=== PATIENT | female | born 1970 | race Caucasian/White ===

== ENCOUNTER 2018-01-16 17:37 | Emergency (ER) | payer OTHER, SELFPAY ==
[2018-01-16 17:38] VITALS: BP 142/98; PULSE 76; RESP 15; TEMP 36.7; O2SAT 99; BMI 18.4
--- NOTE | 2018-01-16 18:07 | CT_ITS ---
STUDY: CT ABDOMEN AND PELVIS WITH CONTRAST REASON FOR EXAM: Female, 47 years old. Left lower quadrant pain and nausea. Previous diverticulitis. RADIATION DOSAGE (If Supplied By Facility): CTDIvol = ( 10.33 ) mGy, DLP = ( 540.09 ) mGycm TECHNIQUE: Transaxial images were obtained from the dome of the diaphragm to the symphysis pubis with oral contrast. 100ML ml of Isovue 300 contrast was administered. Sagittal and coronal images were reconstructed. Individualized dose optimization techniques were used for this CT. COMPARISON: 05/20/2009. FINDINGS: The visualized lung bases are unremarkable. The visualized portions of the heart are within normal limits. Normal liver. Normal gallbladder and extrahepatic biliary system. Normal spleen. Normal pancreas. Normal bilateral adrenal glands. Normal right kidney. Normal left kidney. Normal visualized stomach. Normal small intestine. The appendix is visualized and appears normal. There is a 5 cm segment of colon in the distal descending colon and junction with sigmoid colon which is markedly thickened, irregular, has diverticuli, and pericolonic stranding. Findings are most consistent with acute diverticulitis, but a more serious condition such as neoplasm with inflammatory changes is not excluded. Suggest follow-up and/or colonoscopy. No evidence for perforation or abscess. Normal abdominal aorta. Normal inferior vena cava. Normal retroperitoneum. Normal urinary bladder. There is absence of the uterus consistent with a prior hysterectomy. Normal abdominal wall. Normal osseous structures. CT/Abdomen/Pelvis WITH Contrast IMPRESSION: 5 cm segment of probable acute diverticulitis at the junction of descending colon and sigmoid colon. Circumferential neoplasm not excluded. See comments above. Electronically Signed: Jonny Oviedo MD at 20:09 EST , Service support ,
--- NOTE | 2018-01-16 18:09 | ED.VISSUMM ---
- ER Visit Summary Date of Service: 01/16/18 Chief Complaint: Abdominal pain History of Present Illness: The patient is a 47 F with nausea for 5 days last week. Patient states she was not able to eat much but was drinking a lot. 2 days ago she had diarrhea. She developed left lower quadrant abdominal pain today. She denies fever. She does have some dysuria. History significant for celiac disease and diverticulosis. Prior surgical history includes partial hysterotomy, x2, ex lap x2. Physical Examination: Vital signs are unremarkable. Patient sitting upright in bed no acute distress. Head neck examination is normal. Heart is regular rate and rhythm. Lung sounds are clear. Abdomen is soft with moderate tenderness in the left lower quadrant. No guarding or rebound. Hypoactive bowel sounds are noted throughout. Test Results: CBC was a white count of 13 and hemoglobin concentrated at 15.2. Chemistry studies normal. Urinalysis normal. CT abdomen pelvis with contrast reveals a 5 cm segment of probable acute diverticulitis at the junction of the descending and sigmoid colon. No abscess. Emergency Department Course and Treatment: Patient was given morphine, Zofran, and IV fluids on arrival. On repeat evaluation she states her pain is recurring. She will be redosed with morphine and Phenergan and started on p.o. Cipro and Flagyl. Patient be given prescriptions and will follow up with her primary care physician. She was given return instructions. Treatment Plan: [] Disposition: Discharge Impression: Diverticulitis This note was generated with [employer] dictation software. It may contain incorrect words, spelling, and punctuation that were not noted in review of the chart prior to signing ED Disposition - Plan for ED Patient: Chief Complaint: Abd Pain Referrals: Sree Sanchez MD [Primary Care Provider] -
[2018-01-16] MEDS: 0.9% Normal Saline 1,000 ML 150 ML IV (18:18)
[2018-01-16] MEDS: Ondansetron 4 MG/2 ML Vial IV (18:18)
[2018-01-16] MEDS: Morphine 4 MG/ML Syringe IV ×2 (18:19→21:12)
[2018-01-16 18:24] LABS: Mucous, Urine 0 SEEN /hpf (<or=2+); Red Blood Cells-Urine 0 SEEN /hpf (0-5)
[2018-01-16 18:45] LABS: Absolute Lymphocyte Count 2.88 X10^3/ul (0.83-4.51); Absolute Neutrophil Count 9.1 X10^3/uL (2.0-7.7); Basophil# 0.06 X10^3/uL; Basophil% 0.5 % (0-1); Eosinophil# 0.27 X10^3/uL; Eosinophils% 2.1 % (0-5); Hematocrit 44.9 % (37-47); Hemoglobin 15.2 g/dl (12.0-15.0); Lymphocyte # 2.88 X10^3/ul (4.0); Lymphocyte % 22.1 % (19-41); Mean Corp Hgb Conc 33.9 g/gl (32-36); Mean Corpuscular Hgb 31.5 pg (27.0-32.0); Mean Platelet Vol. 9.6 fl (6.2-12.0); Monocyte# 0.73 X10^3/uL; Monocyte% 5.6 % (0-10); Neutrophil # 9.07 X10^3/uL (2.7-7.7); Neutrophil % 69.5 % (47-70); Platelet Count 296 K/mm3 (150-450); RBC Distribution Width CV 11.7 % (11.6-14.6); RBC Distribution Width SD 39.4 fl (35.1-43.9); Red Blood Count 4.83 M/mm3 (4.2-5.4)
[2018-01-16 18:46] LABS: Anion Gap 5 (5-15); BUN 12 mg/dL (7-18); Calcium,Total 8.6 mg/dL (8.5-10.1); Chloride 105 mmol/L (98-107); Creatinine, Serum 0.71 mg/dL (0.55-1.02); Differential Indicated SCAN CRITERIA MET; EST Glomerular Filtration Rate 94 mL/min (>60); Est Glom Filt Rate - Afr Amer 114 mL/min (>60); Estimated Creatinine Clearance 80.96 ml/min; Glucose 91 mg/dL (74-106); POSITIVE COUNT NO; POSITIVE DIFFERENTIAL NO; POSITIVE MORPHOLOGY YES; Potassium 4.1 mmol/L (3.5-5.1); Sodium Level 138 mmol/L (136-145)
[2018-01-16 19:14] LABS: Color, Urine Yellow (Yellow); Glucose, Dipstick NEGATIVE (Normal); Ketone-Dipstick Negative (Negative); Leukocyte Esterase-Dipstick Negative /ul (Negative); Nitrite-Dipstick Negative (Negative); Occult Blood-Urine Negative /ul (Negative); Protein-Dipstick Negative (Negative); Specific Gravity, Urine 1.005 (1.002-1.030); Urine Bilirubin Dipstick Negative (Negative); Urine Clarity Clear (Clear); Urine Urobilinogen Normal (Normal); Urine pH 6.5 (5.0 - 8.0)
[2018-01-16 19:27] LABS: Bacteria 2+ /hpf (None Seen); Squamous Epithelial Cells - UA 0-5 SEEN /hpf (5-10); White Blood Cells 0-5 SEEN /hpf (0-5)
[2018-01-16 19:38] LABS: Atypical Lymphocyte RARE %; Reactive Lymphocyte 1+
[2018-01-16 20:08] VITALS: RESP 16
--- NOTE | 2018-01-16 20:53 | ED.DEP ---
ED Disposition - Plan for ED Patient: Disposition: Home or Assisted Living Chief Complaint: Abd Pain Instructions: ED Diverticulitis Prescriptions: Hydrocodone Bitart/Apap 5-325 [[place] 5MG-325MG] 1 tablet PO Q6H PRN PRN 3 Days #10 tablet PRN Reason: Pain proMETHazine tablet [Phenergan] 25 mg PO Q6H PRN PRN #10 tablet PRN Reason: Nausea Ciprofloxacin [Cipro] 500 mg PO BID #20 tablet Metronidazole [Flagyl] 500 mg PO Q6H #40 tablet Referrals: Sree Sanchez MD [Primary Care Provider] - 1-2 Weeks
--- NOTE | 2018-01-16 20:56 | DCINST.ED_ITS ---
ED Disposition - Plan for ED Patient: Disposition: Home or Assisted Living Chief Complaint: Abd Pain Instructions: ED Diverticulitis Prescriptions: Hydrocodone Bitart/Apap 5-325 [[place] 5MG-325MG] 1 tablet PO Q6H PRN PRN 3 Days #10 tablet PRN Reason: Pain proMETHazine tablet [Phenergan] 25 mg PO Q6H PRN PRN #10 tablet PRN Reason: Nausea Ciprofloxacin [Cipro] 500 mg PO BID #20 tablet Metronidazole [Flagyl] 500 mg PO Q6H #40 tablet Referrals: Sree Sanchez MD [Primary Care Provider] - 1-2 Weeks
[2018-01-16] MEDS: proMETHazine 25 MG/ML Syringe 12.5 MG IV (21:12)
[2018-01-16] MEDS: metroNIDAZOLE 500 MG Tablet PO (21:13)
[2018-01-16] MEDS: Ciprofloxacin 500 MG Tablet PO (21:13)
[2018-01-16 21:28] VITALS: BP 131/83; PULSE 79; RESP 16; O2SAT 100
--- NOTE | 2018-01-16 21:29 | ED.RN ---
REVIEWED D/C INSTRUCTIONS, FOLLOW UP CARE, PRESCRIPTIONS, AND S/S THAT WOULD WARRANT A RETURN TO THE ED WITH PT. PT VERBALIZED AN UNDERSTANDING AND DENIES FURTHER QUESTIONS FOR THIS RN. PT SKIN P/W/D, RESP EVEN AND UNLABORED, PT A&O X3, NO DISTRESS NOTED. PT AMBULATED OUT OF ED, GAIT STEADY.
== END 2018-01-16 21:30 | disposition home or self-care (01) ==
PROVIDERS: Emergency Provider Emergency Medicine; Family Provider Family Medicine; PCP Family Medicine
DX: K57.92 Diverticulitis of intestine, part unspecified, without perforation or abscess without bleeding (principal); Z72.0 Tobacco use; R30.0 Dysuria; J45.909 Unspecified asthma, uncomplicated
CPT/HCPCS: 74177; 80048; 81001; 85025; 96361; 96374; 96375; 96376; 99284; J7030; Q9967; A4216; J2405

== ENCOUNTER 2018-02-01 17:56 | Emergency (ER) | payer OTHER, SELFPAY ==
[2018-02-01 17:57] VITALS: BP 141/91; PULSE 95; RESP 16; TEMP 36.4; O2SAT 99; BMI 22.6
--- NOTE | 2018-02-01 18:37 | CT_ITS ---
STUDY: CT ABDOMEN AND PELVIS WITHOUT CONTRAST REASON FOR EXAM: Female, 47 years old. Abdominal pain RADIATION DOSAGE (If Supplied By Facility): CTDIvol = ( 6.98 ) mGy, DLP = ( 338.46 ) mGycm TECHNIQUE: Transaxial images were obtained from the dome of the diaphragm to the symphysis pubis without oral contrast, and without intravenous contrast. Sagittal and coronal images were reconstructed. Individualized dose optimization techniques were used for this CT. COMPARISON: None. FINDINGS: The visualized lung bases are unremarkable. The visualized portions of the heart are within normal limits. Normal liver. Normal gallbladder and extrahepatic biliary system. Normal spleen. Normal pancreas. Normal bilateral adrenal glands. Normal right kidney. Normal left kidney. Normal visualized stomach. Normal small intestine. Increased stool throughout the colon. The appendix is visualized and appears normal. Normal abdominal aorta. Normal inferior vena cava. Normal retroperitoneum. Normal urinary bladder. 17 mm stable hypodensity noted centrally within the uterus. Fat-containing umbilical hernia. Normal osseous structures. CT/Abdomen/Pelvis without Cont IMPRESSION: Recent diverticulitis appears improved although sensitivity is limited without IV and oral contrast. Increased stool. No free air or abscess noted. Electronically Signed: Main Wren MD at 19:39 EST , Service support ,
--- NOTE | 2018-02-01 18:45 | ED.DCSUM_ITS ---
- ER Visit Summary Date of Service: 02/01/18 Chief Complaint: [] Left lower quadrant pain since Tuesday History of Present Illness: The patient is a 47 F [] ports that she had a diagnosis of diverticulitis about 2 weeks ago, she was started on Flagyl and Cipro, she completed that prescription this past Tuesday and then later on Tuesday she began having pain to the left lower quadrant similar to what she had before, the pain is intensified today, she spoke with her physicians and was told to come to the hospital She has had no fever her bowel and bladder habits been normal, she had a prior colonoscopy has history of GI celiac, diverticulosis, no other past history elements Physical Examination: [] 141/91 afebrile Points directly to her left lower quadrant General, no distress resting comfortably HEENT is generally unremarkable The neck is supple no adenopathy Cardiovascular, regular rate and rhythm Lungs, clear bilateral Abdomen, soft, there is some tenderness with some soft very mild guarding to the left lower abdomen there is no rebound there is no masses she assures me her bowel bladder habits have been unremarkable Extremities, no clubbing cyanosis or edema Neurologic, awake alert answering questions appropriately moving all 4 extremities Test Results: [] Emergency Department Course and Treatment: [] Her complaints and exam screening labs CT IV fluids pain management The patient's labs and CT are all generally unremarkable fact the radiologist reports a CT is markedly improved showing no signs of diverticulitis abscess fluid etc. there is stool noted throughout the colon Spent all the above to the patient Exact etiology of pain at this time is unclear and certainly could be related to heavy stool load versus early recurrence of diverticulitis that is not visible on CT her labs at this time she is feeling well to be discharged, we will have her stay on high-fiber food Metamucil prune juice type foods to stimulate bowel movements, she will be given Cipro and Flagyl prescriptions to use in 24 hours if not improving otherwise follow-up with her doctors return for change in symptoms Treatment Plan: [] Disposition: [] Home stable Impression: [] Left lower quadrant pain etiology not entirely clear history of recent diverticulitis This note was generated with [email or web address] dictation software. It may contain incorrect words, spelling, and punctuation that were not noted in review of the chart prior to signing ED Disposition - Plan for ED Patient: Chief Complaint: Abd Pain Referrals: Sree Sanchez MD [Primary Care Provider] -
[2018-02-01 18:48] LABS: Bacteria 0 SEEN /hpf (None Seen); Mucous, Urine 0 SEEN /hpf (<or=2+); Red Blood Cells-Urine 0 SEEN /hpf (0-5); Squamous Epithelial Cells - UA 0 SEEN /hpf (5-10); White Blood Cells 0 SEEN /hpf (0-5)
[2018-02-01] MEDS: Ondansetron 4 MG/2 ML Vial IV (18:48)
[2018-02-01] MEDS: 0.9% Normal Saline 1,000 ML 1000 ML IV (18:48)
[2018-02-01] MEDS: morphine 8 MG/ML Syringe IV (18:48)
[2018-02-01 18:54] LABS: Color, Urine Yellow (Yellow); Glucose, Dipstick Normal (Normal); Ketone-Dipstick Negative (Negative); Leukocyte Esterase-Dipstick Negative /ul (Negative); Nitrite-Dipstick Negative (Negative); Occult Blood-Urine Negative /ul (Negative); Protein-Dipstick Negative (Negative); Specific Gravity, Urine 1.005 (1.002-1.030); Urine Bilirubin Dipstick Negative (Negative); Urine Clarity Clear (Clear); Urine Urobilinogen Normal (Normal)
[2018-02-01 18:56] LABS: Absolute Lymphocyte Count 2.73 X10^3/ul (0.83-4.51); Absolute Neutrophil Count 3.8 X10^3/uL (2.0-7.7); Basophil# 0.06 X10^3/uL; Basophil% 0.8 % (0-1); Eosinophils% 4.1 % (0-5); Hematocrit 41.9 % (37-47); Hemoglobin 13.8 g/dl (12.0-15.0); Lymphocyte # 2.73 X10^3/ul (4.0); Mean Corp Hgb Conc 32.9 g/gl (32-36); Mean Corpuscular Volume 94.2 fL (81-99); Mean Platelet Vol. 9.7 fl (6.2-12.0); Monocyte# 0.49 X10^3/uL; Monocyte% 6.6 % (0-10); Neutrophil # 3.79 X10^3/uL (2.7-7.7); Neutrophil % 51.4 % (47-70); POSITIVE COUNT NO; POSITIVE DIFFERENTIAL NO; POSITIVE MORPHOLOGY NO; Platelet Count 282 K/mm3 (150-450); RBC Distribution Width CV 12.4 % (11.6-14.6); RBC Distribution Width SD 43.1 fl (35.1-43.9); Red Blood Count 4.45 M/mm3 (4.2-5.4); White Blood Count 7.4 K/mm3 (4.4-11.0)
[2018-02-01 18:58] LABS: AST(SGOT) 22 U/L (15-37); Alanine Aminotransfer ALT/SGPT 27 U/L (13-56); Albumin, Serum 3.6 g/dL (3.2-5.0); Alkaline Phosphatase 89 U/L (45-117); Anion Gap 6 (5-15); BUN 17 mg/dL (7-18); BUN/Creat Ratio 21.5 RATIO (10-20); Bilirubin, Direct 0.12 mg/dL (0.00-0.30); Calcium,Total 8.7 mg/dL (8.5-10.1); Chloride 107 mmol/L (98-107); Creatinine, Serum 0.79 mg/dL (0.55-1.02); EST Glomerular Filtration Rate 83 mL/min (>60); Est Glom Filt Rate - Afr Amer 100 mL/min (>60); Estimated Creatinine Clearance 76.84 ml/min; Globulin 3.4 g/dL (2.2-4.2); Glucose 97 mg/dL (74-106); Lipase 169 U/L (73-393); Potassium 4.2 mmol/L (3.5-5.1); Sodium Level 140 mmol/L (136-145)
[2018-02-01 20:24] VITALS: PULSE 88; RESP 16; O2SAT 98
--- NOTE | 2018-02-01 20:37 | ED.DEP ---
ED Disposition - Plan for ED Patient: Chief Complaint: Abd Pain Instructions: ED Abdominal Pain Unkn Cause Prescriptions: Ciprofloxacin [Cipro] 500 mg PO BID #14 tab Metronidazole [Flagyl] 500 mg PO Q6H #40 tab Referrals: Sree Sanchez MD [Primary Care Provider] - Additional Instructions: Please try taking Metamucil prune juice other stool softeners if not improved in 24 hours start antibiotics and follow-up with your outpatient providers return for change in symptoms
[2018-02-01 20:43] VITALS: BP 132/85; PULSE 88; RESP 16; O2SAT 99
== END 2018-02-01 20:48 | disposition home or self-care (01) ==
LOC: ED 18:53
PROVIDERS: Emergency Provider Emergency Medicine; Family Provider Family Medicine; PCP Family Medicine
DX: R10.32 Left lower quadrant pain (principal); K57.92 Diverticulitis of intestine, part unspecified, without perforation or abscess without bleeding
CPT/HCPCS: 74176; 80048; 80076; 81001; 83690; 85025; 99283; J7030; A4216; J2405

== ENCOUNTER 2019-08-01 12:43 | Emergency (ER) | payer OTHER, SELFPAY ==
[2019-08-01 12:43] VITALS: BP 154/107; PULSE 95; RESP 17; TEMP 37; O2SAT 98; BMI 23.6
--- NOTE | 2019-08-01 13:32 | RAD_ITS ---
STUDY: X-RAY CHEST REASON FOR EXAM: Female, 49 years old. CP X 10 DAYS TECHNIQUE: Single AP portable view of the chest. COMPARISON: Comparison is made with prior study dated December 05, 2012. FINDINGS: EKG lead are seen. The lungs are clear and expanded. There is no demonstrated pleural abnormality. Normal size heart. Normal mediastinum and jerry. Normal visualized pulmonary arteries. Normal visualized aortic arch and descending thoracic aorta. Normal visualized thoracic spine. Normal visualized ribs, clavicles, and shoulders. There is no demonstrated abnormality of the visualized soft tissue structures of the upper abdomen. RAD/Chest 1 View (Portable) IMPRESSION: Normal x-ray examination of the chest. Electronically Signed: Morgan Lamb, at 14:34 EDT , Service support ,
--- NOTE | 2019-08-01 13:32 | EKG12_ITS ---
Test Reason : Blood Pressure : / mmHG Vent. Rate : 074 BPM Atrial Rate : 074 BPM P-R Int : 130 ms QRS Dur : 070 ms QT Int : 376 ms P-R-T Axes : 080 068 055 degrees QTc Int : 417 ms Normal sinus rhythm Normal ECG Confirmed by HERBER ZHU ([id number]), legal editor SRIRAM MULLINS ([id number]) on 08/09/2019 7:45:29 AM Referred By: MARINA Confirmed By:HERBER ZHU
--- NOTE | 2019-08-01 13:33 | ED.DCSUM_ITS ---
- ER Visit Summary Date of Service: 08/01/19 Chief Complaint: Chest pain History of Present Illness: The patient is a 49 F who presents with chest pain that began 1 week ago. Patient states the pain is over the right side of her chest. Patient states the pain started as a dull ache but now sharp at times. Patient states occasionally the pain gets worse with certain movements such as turning her head and chest. Patient states nothing seems to help with it. Patient denies any nausea or vomiting. Patient denies any diaphoresis. Patient admits to some mild shortness of breath but states she has a history of asthma. Patient admits to some palpitations and some lightheadedness. Patient admits to occasional smoking but denies any other cardiac risk factors. Physical Examination: Vital signs are stable. Patient is afebrile. Patient is in no acute distress. Oral mucosa is pink and moist. Neck is supple. Trachea is midline. There is no JVD noted. Heart was regular rate and rhythm. Lungs are clear and equal bilaterally. Abdomen is soft. Bowel sounds are normal. There is no tenderness. There is no rebound or guarding noted. Skin is warm dry. Cranial nerves II through XII are intact. There are no focal motor or sensory deficits noted. Extremities are intact. There is no calf tenderness or edema. Test Results: EKG shows a normal sinus rhythm with a rate of 74. There are no acute ST or T wave changes. Portable chest x-ray was obtained. There is no acute cardiopulmonary process. CBC, basic metabolic profile, and troponin were obtained and were all within normal limits. Emergency Department Course and Treatment: Patient was given aspirin here. Patient was feeling better on reevaluation. Patient has a HEART score of 2. Patient was advised that this is low risk for acute cardiac event. Patient was instructed to follow-up with her primary care physician in 5 to 7 days. Patient understood and was agreeable with the plan. All questions were answered. Disposition: Discharge home Impression: Chest pain of uncertain etiology This note was generated with [employer] dictation software. It may contain incorrect words, spelling, and punctuation that were not noted in review of the chart prior to signing ED Disposition - Plan for ED Patient: Disposition: Home or Assisted Living Diagnosis: Chest pain Instructions: ED Chest Pain Atypical Unkn Cause Referrals: Sree Sanchez MD [Primary Care Provider] - 5-7 Days
[2019-08-01] MEDS: Aspirin 81 MG TAB.CHEW 324 MG PO (13:37)
[2019-08-01 13:38] LABS: Absolute Lymphocyte Count 3.41 X10^3/uL (0.83-4.51); Absolute Neutrophil Count 5.2 X10^3/uL (2.0-7.7); Basophil# 0.07 X10^3/uL; Basophil% 0.7 % (0-1); Eosinophil# 0.16 X10^3/uL; Eosinophils% 1.7 % (0-5); Hematocrit 45.3 % (37-47); Hemoglobin 14.9 g/dL (12.0-15.0); Lymphocyte # 3.41 X10^3/ul (4.0); Mean Corp Hgb Conc 32.9 g/dL (32-36); Mean Corpuscular Hgb 32.5 pg (27.0-32.0); Mean Corpuscular Volume 98.7 fL (81-99); Mean Platelet Vol. 9.7 fl (6.2-12.0); Monocyte# 0.59 X10^3/uL; Monocyte% 6.2 % (0-10); NRBC Flagged by Analyzer 0 % (0-5); Neutrophil # 5.21 X10^3/uL (2.7-7.7); Neutrophil % 55.1 % (47-70); Platelet Count 271 K/mm3 (150-450); RBC Distribution Width CV 13.2 % (11.6-14.6); RBC Distribution Width SD 47.7 fl (35.1-43.9); Red Blood Count 4.59 M/mm3 (4.2-5.4); White Blood Count 9.5 K/mm3 (4.4-11.0)
[2019-08-01 13:42] VITALS: O2SAT 98
[2019-08-01 13:52] LABS: Anion Gap 8 (5-15); BUN 9 mg/dL (7-18); BUN/Creat Ratio 10.1 RATIO (10-20); Calcium,Total 9.2 mg/dL (8.5-10.1); Chloride 104 mmol/L (98-107); Creatinine, Serum 0.89 mg/dL (0.55-1.02); EST Glomerular Filtration Rate 72 mL/min (>60); Est Glom Filt Rate - Afr Amer 87 mL/min (>60); Estimated Creatinine Clearance 66.75 ml/min; Glucose 72 mg/dL (74-106); Potassium 3.9 mmol/L (3.5-5.1); Sodium Level 140 mmol/L (136-145)
[2019-08-01 14:43] VITALS: BP 143/83; PULSE 68; RESP 12; O2SAT 99
[2019-08-01 15:52] VITALS: BP 152/80; PULSE 75; RESP 18; O2SAT 98
== END 2019-08-01 15:56 | disposition home or self-care (01) ==
PROVIDERS: Emergency Provider Emergency Medicine; PCP Family Medicine
DX: R00.2 Palpitations (principal); R42 Dizziness and giddiness; Z72.0 Tobacco use; J45.909 Unspecified asthma, uncomplicated
CPT/HCPCS: 71045; 80048; 84484; 85025; 93005; 99285; A4216

== ENCOUNTER 2019-10-23 11:59 | Emergency (ER) | payer OTHER, SELFPAY ==
[2019-10-23 12:00] VITALS: BP 137/101; PULSE 114; RESP 16; TEMP 36.4; O2SAT 97; BMI 23.4
[2019-10-23 12:02] VITALS: BP 137/101; PULSE 114; RESP 16; TEMP 36.4; O2SAT 97
--- NOTE | 2019-10-23 12:34 | ED.DCSUM_ITS ---
History of Present Illness Chief Complaint: Abd Pain Informant: Patient Narrative: 49-year-old female presenting with abdominal pain. She states that a few days ago she noted that she had pain in the center of her abdomen. 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 She states that her ultrasound of her ovaries were fine. At times she felt that the pain radiated to the right lower quadrant. Today she feels like it is in the left lower quadrant. She has nausea which she states is extreme. She has not vomited. She is not had a fever. She states that over the last few months she has had multiple episodes of bacterial vaginosis treated with Flagyl and diverticulitis treated with Cipro and Flagyl and her revolving manner. She is concerned she has diverticulitis again. He was already treated for bacterial vaginosis last week. Past Medical History - Allergies and Home Meds Allergies/Adverse Reactions: Allergies Sulfa (Sulfonamide Antibiotics) Allergy (Verified 10/23/19 12:14) Unknown Primary Care Physician: Sree Sanchez MD [Primary Care Provider] - Past Medical History: - - Diverticulitis Surgical History: - - Partial hysterectomy Lives: Spouse/ Significant Other Smoking Status: Never smoker Alcohol: None Drugs: None Review of Systems General: Denies: Chills, Fever, Malaise Eyes: Denies: Visual changes - bilaterally, Diplopia ENT: Denies: Rhinorrhea, Sore throat Cardiovascular: Denies: Chest pain, Palpitations Respiratory: Denies: Dyspnea, Cough, Dyspnea on exertion Gastrointestinal: Reports: Abdominal pain, Nausea. Denies: Vomiting, Diarrhea, Constipation, Hematochezia Genitourinary: Denies: Dysuria Musculoskeletal: Denies: Myalgias, Arthralgias Skin: Denies: Rash, Abscess Physical Exam Vital Signs/Narrative: Vital Signs Temp Pulse Resp BP Pulse Ox 10/23/19 12:02 97.5 F L 114 H 16 137/101 H 97 10/23/19 12:00 97.5 F L 114 H 16 137/101 H 97 Inital Vital Signs reviewed: Yes General: Well nourished, No Acute Distress Head: Normocephalic, Atraumatic Eyes: Perrl, EOMI ENT: Moist mucous membranes, No rhinorrhea Cardiovascular: Regular rate, Regular rhythm Respiratory: Wheezing, Diminished Abdomen: Soft, Nondistended, Tender - Tenderness to palpation left lower quadrant Rectal: Deferred Extremities: Nontender, No edema Skin: Normal color, No rash Neurological: Alert, Oriented x3 Psychological: Normal affect, Normal Mood Diagnostic/Tx/Re-eval Clinical Impression(s) from Imaging Studies Abdomen/Pelvis CT 10/23/19 12:37 IMPRESSION: Findings incomplete diverticulitis of the descending colon. Electronically Signed: Morgan Lamb, at 14:25 EDT , Service support , Laboratory Data 10/23/19 10/23/19 10/23/19 12:29 12:59 12:59 WBC 10.1 RBC 4.40 Hgb 14.4 Hct 43.0 MCV 97.7 MCH 32.7 H MCHC 33.5 RDW Std Deviation 45.0 H RDW Coeff of Rufino 12.6 Plt Count 266 MPV 9.7 Immature Gran % (Auto) 0.300 Neut % (Auto) 65.1 Lymph % (Auto) 25.3 Crawford % (Auto) 7.7 Eos % (Auto) 1.2 Baso % (Auto) 0.4 Absolute Neuts (auto) 6.6 Absolute Lymphs (auto) 2.55 Nucleated RBC % 0 Sodium 141 Potassium 4.1 Chloride 108 H Carbon Dioxide 31.0 Anion Gap 2 L BUN 7 Creatinine 0.77 Estim Creat Clear Calc 77.16 Est GFR (MDRD) Af Amer 102 Est GFR (MDRD) Non-Af 85 BUN/Creatinine Ratio 9.1 L Glucose 90 Calcium 8.9 Urine Color Straw Urine Clarity Clear Urine pH 8.0 Ur Specific Boyd 1.010 Urine Protein Negative Urine Glucose (UA) Normal Urine Ketones Negative Urine Occult Blood Negative Urine Nitrite Negative Urine Bilirubin Negative Urine Urobilinogen Normal Ur Leukocyte Esterase Negative Urine RBC 0 SEEN Urine WBC 0-5 SEEN Ur Squamous Epith Cells 5-10 SEEN Urine Bacteria 2+ Urine Mucus 0 SEEN - Medical Decision Making Patient presents with abdominal pain which started on Tuesday. She states it was intermittent until now wants more constant. Patient's pain was treated with morphine and Zofran and her pain is improved. She has not had any fever or other systemic signs other than nausea. Lab work is unremarkable. Her vital signs are stable and she is afebrile. CT of the abdomen pelvis shows uncomplicated diverticulitis. Patient will be treated with Augmentin and given first dose in the ED. She was also given a prescription for [place] and Zofran. Impression: #1 acute uncomplicated diverticulitis ED Disposition - Plan for ED Patient: Disposition: Home or Assisted Living Instructions: ED Diverticulitis Prescriptions: Amox/Clavulanate Tablet [Augmentin Tablet] 875 mg PO Q12H #20 tab Prescription Printed Hydrocodone Bitart/Apap 5-325 [[place] 5MG-325MG] 1 tab PO Q6H PRN PRN 3 Days #12 tab PRN Reason: Pain Prescription Printed Ondansetron [Zofran Odt] 4 mg PO Q8H PRN PRN #12 tab PRN Reason: Nausea Prescription Printed Referrals: Sree Sanchez MD [Primary Care Provider] -
--- NOTE | 2019-10-23 12:37 | CT_ITS ---
STUDY: CT ABDOMEN AND PELVIS WITH CONTRAST REASON FOR EXAM: Female, 49 years old. LLQ PAIN, NAUSEA, RECENT DIVERTICULITIS/BACTERIAL VAGINOSIS RADIATION DOSAGE (If Supplied By Facility): CTDIvol = ( 13.01 ) mGy, DLP = ( 479.23 ) mGycm TECHNIQUE: Transaxial images were obtained from the dome of the diaphragm to the symphysis pubis without oral contrast. IV 100mL Isovue-300 was administered. Sagittal and coronal images were reconstructed. Individualized dose optimization techniques were used for this CT. COMPARISON: Comparison is made with prior study dated 02/01/2018. FINDINGS: The visualized lung bases are unremarkable. The visualized portions of the heart are within normal limits. Normal liver. Normal gallbladder and extrahepatic biliary system. Normal spleen. Normal pancreas. Normal bilateral adrenal glands. Normal right kidney. Normal left kidney. Normal visualized stomach. Normal small intestine. There is evidence of a diverticulosis of the left hemicolon. Circumferential wall thickening of the descending colon with increased markings in the surrounding peritoneal fat as well as thickening of the anterior perinephric fascia and lateral conal fascia on the left side. Findings are in keeping with acute diverticulitis involving the descending colon. The appendix is visualized and appears normal. Normal abdominal aorta. Normal inferior vena cava. Normal retroperitoneum. Normal urinary bladder. There is a small umbilical hernia containing fat. Normal osseous structures. CT/Abdomen/Pelvis W IV Cont ONLY IMPRESSION: Findings incomplete diverticulitis of the descending colon. Electronically Signed: Morgan Lamb, at 14:25 EDT , Service support ,
[2019-10-23 12:51] LABS: Mucous, Urine 0 SEEN /hpf (<or=2+); Red Blood Cells-Urine 0 SEEN /hpf (0-5)
[2019-10-23] MEDS: 0.9% Normal Saline 1,000 ML 1000 ML IV (12:54)
[2019-10-23] MEDS: Ondansetron 4 MG/2 ML Vial IV (12:54)
[2019-10-23 12:55] LABS: Color, Urine Straw (Yellow); Glucose, Dipstick Normal (Normal); Ketone-Dipstick Negative (Negative); Leukocyte Esterase-Dipstick Negative /ul (Negative); Nitrite-Dipstick Negative (Negative); Occult Blood-Urine Negative /ul (Negative); Protein-Dipstick Negative (Negative); Urine Bilirubin Dipstick Negative (Negative); Urine Clarity Clear (Clear); Urine Urobilinogen Normal (Normal)
[2019-10-23] MEDS: Morphine 4 MG/ML Syringe IV (12:55)
[2019-10-23 13:02] LABS: Bacteria 2+ /hpf (None Seen); Squamous Epithelial Cells - UA 5-10 SEEN /hpf (5-10); White Blood Cells 0-5 SEEN /hpf (0-5)
[2019-10-23 13:22] LABS: Absolute Lymphocyte Count 2.55 X10^3/uL (0.83-4.51); Absolute Neutrophil Count 6.6 X10^3/uL (2.0-7.7); Basophil# 0.04 X10^3/uL; Basophil% 0.4 % (0-1); Eosinophil# 0.12 X10^3/uL; Eosinophils% 1.2 % (0-5); Hemoglobin 14.4 g/dL (12.0-15.0); Lymphocyte # 2.55 X10^3/ul (4.0); Lymphocyte % 25.3 % (19-41); Mean Corp Hgb Conc 33.5 g/dL (32-36); Mean Corpuscular Hgb 32.7 pg (27.0-32.0); Mean Corpuscular Volume 97.7 fL (81-99); Mean Platelet Vol. 9.7 fl (6.2-12.0); Monocyte# 0.78 X10^3/uL; Monocyte% 7.7 % (0-10); NRBC Flagged by Analyzer 0 % (0-5); Neutrophil # 6.55 X10^3/uL (2.7-7.7); Neutrophil % 65.1 % (47-70); Platelet Count 266 K/mm3 (150-450); RBC Distribution Width CV 12.6 % (11.6-14.6); White Blood Count 10.1 K/mm3 (4.4-11.0)
[2019-10-23 13:35] LABS: Anion Gap 2 (5-15); BUN 7 mg/dL (7-18); BUN/Creat Ratio 9.1 RATIO (10-20); Calcium,Total 8.9 mg/dL (8.5-10.1); Chloride 108 mmol/L (98-107); Creatinine, Serum 0.77 mg/dL (0.55-1.02); EST Glomerular Filtration Rate 85 mL/min (>60); Est Glom Filt Rate - Afr Amer 102 mL/min (>60); Estimated Creatinine Clearance 77.16 ml/min; Glucose 90 mg/dL (74-106); Potassium 4.1 mmol/L (3.5-5.1); Sodium Level 141 mmol/L (136-145)
[2019-10-23 14:00] VITALS: BP 126/86; PULSE 110; RESP 18; O2SAT 98
[2019-10-23] MEDS: Amox/Clavulanate 875 MG Tablet PO (15:00)
== END 2019-10-23 15:04 | disposition home or self-care (01) ==
PROVIDERS: Emergency Provider Student in an Organized Health Care Education/Training Program; PCP Family Medicine
DX: K57.32 Diverticulitis of large intestine without perforation or abscess without bleeding (principal)
CPT/HCPCS: 74177; 80048; 81001; 85025; 96361; 96374; 96375; 99284; J7030; Q9967; A4216; J2405

== ENCOUNTER → 2020-03-12 09:16 | Outpatient (CLI) | payer OTHER, SELFPAY ==
[2020-03-12 09:39] LABS: Lipase 129 U/L (73-393)
== END ==
PROVIDERS: PCP Family Medicine; Referring Provider Family Medicine; Visit Provider Family Medicine
DX: R10.33 Periumbilical pain (principal)
CPT/HCPCS: 83690

== ENCOUNTER 2020-04-19 09:45 | Emergency (ER) | payer OTHER, SELFPAY ==
[2020-04-19 09:46] VITALS: BP 157/131; PULSE 80; RESP 14; TEMP 36.2; O2SAT 98; BMI 23.0
[2020-04-19 09:59] VITALS: O2SAT 98
--- NOTE | 2020-04-19 09:59 | EKG12_ITS ---
Test Reason : Blood Pressure : / mmHG Vent. Rate : 070 BPM Atrial Rate : 070 BPM P-R Int : 142 ms QRS Dur : 070 ms QT Int : 390 ms P-R-T Axes : 067 068 068 degrees QTc Int : 421 ms Normal sinus rhythm Normal ECG Confirmed by CARMELINA ALVAREZ, ESTHER ([id number]), brands editor SRIRAM MULLINS ([id number]) on 04/22/2020 11:23:32 AM Referred By: SHAI Confirmed By:ESTHER COSME MD
--- NOTE | 2020-04-19 10:00 | ED.VISSUMM ---
- ER Visit Summary Date of Service: 04/19/20 Chief Complaint: Chest pain History of Present Illness: The patient is a [address] Sanchez. She reports she has left-sided chest pain again 2 days ago. Is a constant pain that waxes and wanes. She describes it as dull and aching. 4-10 worsened to 10 currently. Is worsened by twisting her torso and breathing. Is relieved by nothing. She denies any associated nausea or vomiting. She does report she has been diaphoretic at times with this. She denies any shortness of breath. Patient reports that 3 days ago she had vomiting and diarrhea that lasted approximately 24 hours. Since that time she has been lightheaded. This increases when she stands. She has not passed out. She had a negative Covid test 2 days ago. No personal history of DVT. No recent travel. No ankle swelling or calf pain. She does have a family history of DVT. Physical Examination: Vitals: Stable. Afebrile. General: Well-nourished and well-developed. Head: Normocephalic atraumatic. Neck: Supple, no lymphadenopathy. No JVD. Nontender. Cardiovascular: Regular rate and rhythm. No murmurs. Respiratory: No respiratory distress. Clear to auscultation bilaterally. Abdominal: Soft, nontender, nondistended, normal bowel sounds. No guarding, rebound, or peritoneal signs. Back: Nontender. Extremities: Nontender, no edema. Skin: Normal color, no rash. Neurologic: Alert and oriented ?3. Cranial nerves II through XII are intact. Normal strength and sensation. Psych: Normal affect. Test Results: EKG is sinus at [address] changes. Is unchanged from July 2019. CBC shows an H&H of 15.9 and 49.1, lymphocytes 43. Chem-7 is normal. Troponin is negative. Clinical Impression(s) from Imaging Studies Chest X-Ray 04/19/20 10:12 IMPRESSION: Normal x-ray examination of the chest. Electronically Signed: Carl Franco MD at 10:27 EST Tel , Service support , Emergency Department Course and Treatment: Patient had an IV placed. She was given a liter of normal saline. Treatment Plan: Patient's pain is very atypical. She has a negative cardiac work-up despite 2 days of constant pain. I feel that she is a suitable candidate for further outpatient evaluation. Patient will be discharged with instructions to push fluids. Follow-up her primary care physician in 3 to 5 days for another exam. Return to the emergency department for any worsening symptoms. Disposition: To home in improved and stable condition. Impression: One. Atypical chest pain. 2. Heart score of three. This note was generated with [employer] dictation software. It may contain incorrect words, spelling, and punctuation that were not noted in review of the chart prior to signing ED Disposition - Plan for ED Patient: Instructions: ED Chest Pain, Uncertain Cause Prescriptions: Ondansetron [Zofran Odt] 4 mg PO Q8H PRN PRN #10 tab PRN Reason: Nausea Prescription Printed Referrals: Sree Sanchez MD [Primary Care Provider] - 3-5 Days
[2020-04-19 10:05] LABS: Absolute Lymphocyte Count 2.73 X10^3/uL (0.83-4.51); Absolute Neutrophil Count 3.1 X10^3/uL (2.0-7.7); Basophil# 0.04 X10^3/uL; Basophil% 0.6 % (0-1); Eosinophils% 1.6 % (0-5); Hematocrit 49.1 % (37-47); Hemoglobin 15.9 g/dL (12.0-15.0); Lymphocyte # 2.73 X10^3/ul (4.0); Lymphocyte % 43.1 % (19-41); Mean Corp Hgb Conc 32.4 g/dL (32-36); Mean Corpuscular Hgb 30.3 pg (27.0-32.0); Mean Corpuscular Volume 93.7 fL (81-99); Monocyte# 0.31 X10^3/uL; Monocyte% 4.9 % (0-10); NRBC Flagged by Analyzer 0 % (0-5); Neutrophil # 3.14 X10^3/uL (2.7-7.7); Neutrophil % 49.5 % (47-70); Platelet Count 287 K/mm3 (150-450); RBC Distribution Width CV 13.2 % (11.6-14.6); RBC Distribution Width SD 45.8 fl (35.1-43.9); Red Blood Count 5.24 M/mm3 (4.2-5.4); White Blood Count 6.3 K/mm3 (4.4-11.0)
[2020-04-19 10:06] VITALS: BP 135/94; BP 136/94; BP 140/92; PULSE 61; PULSE 64; PULSE 77
[2020-04-19] MEDS: 0.9% Normal Saline 1,000 ML 1000 ML IV (10:07)
--- NOTE | 2020-04-19 10:12 | RAD_ITS ---
STUDY: X-RAY CHEST REASON FOR EXAM: Female, 50 years old. Chest pain and dizziness. TECHNIQUE: Single AP portable view of the chest. COMPARISON: 08/01/2019 FINDINGS: The lungs are clear and expanded. There is no demonstrated pleural abnormality. Normal size heart. Normal mediastinum and jerry. Normal visualized pulmonary arteries. Normal visualized aortic arch and descending thoracic aorta. Normal visualized thoracic spine. Normal visualized ribs, clavicles, and shoulders. There is no demonstrated abnormality of the visualized soft tissue structures of the upper abdomen. RAD/Chest 1 View (Portable) IMPRESSION: Normal x-ray examination of the chest. Electronically Signed: Carl Franco MD at 10:27 EST Tel , Service support ,
[2020-04-19 10:23] LABS: Anion Gap 7 (5-15); BUN 13 mg/dL (7-18); Calcium,Total 9.3 mg/dL (8.5-10.1); Chloride 104 mmol/L (98-107); Creatinine, Serum 0.93 mg/dL (0.55-1.02); EST Glomerular Filtration Rate 68 mL/min (>60); Est Glom Filt Rate - Afr Amer 83 mL/min (>60); Estimated Creatinine Clearance 63.19 ml/min; Glucose 93 mg/dL (74-106); Potassium 3.8 mmol/L (3.5-5.1); Sodium Level 139 mmol/L (136-145)
[2020-04-19] MEDS: Ondansetron 4 MG/2 ML Vial IV (10:44)
[2020-04-19 10:54] VITALS: BP 141/88; PULSE 76; RESP 14
== END 2020-04-19 10:56 | disposition home or self-care (01) ==
LOC: ED 10:24
PROVIDERS: Emergency Provider Emergency Medicine; PCP Family Medicine
DX: R07.89 Other chest pain (principal); Z82.49 Family history of ischemic heart disease and other diseases of the circulatory system; R61 Generalized hyperhidrosis; R42 Dizziness and giddiness
CPT/HCPCS: 71045; 80048; 84484; 85025; 93005; 96361; 96374; 99285; J7030; J2405

== ENCOUNTER → 2020-07-25 15:20 | Outpatient (CLI) | payer OTHER, SELFPAY ==
[2020-07-25 13:58] VITALS: BMI 22.8
[2020-08-06 20:08] LABS: Dopamine, Pl <30 pg/mL (0-48); Epinephrine, Pl 26 pg/mL (0-62); Norepinephrine, Pl 547 pg/mL (0-874)
== END ==
PROVIDERS: PCP Family Medicine; Referring Provider Internal Medicine Cardiovascular Disease; Visit Provider Internal Medicine Cardiovascular Disease
DX: R03.0 Elevated blood-pressure reading, without diagnosis of hypertension (principal)
CPT/HCPCS: 36415; 82384; 84244

== ENCOUNTER → 2020-07-30 09:30 | Outpatient (CLI) | payer OTHER, SELFPAY ==
[2020-07-25 13:58] VITALS: BMI 22.8
== END ==
PROVIDERS: PCP Family Medicine; Referring Provider Internal Medicine Cardiovascular Disease; Visit Provider Internal Medicine Cardiovascular Disease
DX: R03.0 Elevated blood-pressure reading, without diagnosis of hypertension (principal)
CPT/HCPCS: 93788

== ENCOUNTER → 2020-08-08 15:51 | Outpatient (CLI) | payer OTHER, SELFPAY ==
[2020-07-25 13:58] VITALS: BMI 22.8
[2020-08-14 03:06] LABS: Aldosterone, Serum 5.9 ng/dL (0.0-30.0)
[2020-08-14 14:11] LABS: Renin, Plasma 1.212 ng/mL/hr (0.167-5.380)
== END ==
PROVIDERS: PCP Family Medicine; Referring Provider Internal Medicine Cardiovascular Disease; Visit Provider Internal Medicine Cardiovascular Disease
DX: R06.89 Other abnormalities of breathing (principal); R03.0 Elevated blood-pressure reading, without diagnosis of hypertension; H35.60 Retinal hemorrhage, unspecified eye; R42 Dizziness and giddiness; I49.9 Cardiac arrhythmia, unspecified; R00.2 Palpitations
CPT/HCPCS: 36415; 82088; 84244

== ENCOUNTER 2021-01-17 17:26 | Emergency (ER) | payer OTHER, SELFPAY ==
[2021-01-17 17:26] VITALS: BP 186/113; PULSE 125; RESP 18; TEMP 35.8; O2SAT 100; BMI 23.1
--- NOTE | 2021-01-17 17:50 | EKG12_ITS ---
Test Reason : LEG SWELLING Blood Pressure : / mmHG Vent. Rate : 104 BPM Atrial Rate : 104 BPM P-R Int : 168 ms QRS Dur : 070 ms QT Int : 336 ms P-R-T Axes : 068 067 041 degrees QTc Int : 441 ms Sinus tachycardia Septal infarct , age undetermined Abnormal ECG Confirmed by CARMELINA ALVAREZ, ESTHER ([id number]), graphics editor SRIRAM MULLINS ([id number]) on 01/19/2021 1:28:00 PM Referred By: NAIF Confirmed By:ESTHER COSME MD
--- NOTE | 2021-01-17 17:50 | EX.ED.DYSGE1 ---
HPI History of Present Illness Chief Complaint: Lower Extremity Injury Detail of Chief Complaint: Pain, redness, swelling to left calf Informant: patient Narrative Narrative: Patient presents to the emergency department with pain and redness and swelling to her left calf that she is noticed for the last several weeks. The discomfort was worse today and has not resolved. Normally the redness and discoloration is worse in the morning but dissipates throughout the day. She denies any trauma to her leg. Patient also states that she has noticed an increased heart rate. She denies any chest pain or shortness of breath out of the ordinary but she always has some shortness of breath due to her asthma and has been using her inhaler more. Patient did have surgery year ago which was a partial colectomy due to diverticulitis. Patient does not have history of PE or DVT. Prior similar symptoms: No PFSH PFSH Medical History Attention and concentration deficit Celiac disease Diverticular disease of both small and large intestine without perforation or abscess Diverticulosis Elevated blood pressure reading without diagnosis of hypertension Generalized anxiety disorder Hearing loss Retinal hemorrhage Sensory peripheral neuropathy Home Medications albuterol sulfate [Proair Hfa] 1 - 2 puff INHALATION Q4H PRN PRN 01/16/18 [History Last Taken Unknown] venlafaxine 50 mg PO DAILY 01/17/21 [History Last Taken Unknown] Allergy/AdvReac Type Severity Reaction Status Date / Time gluten Allergy Nausea Verified 01/17/21 17:26 Sulfa (Sulfonamide Allergy Unknown Verified 01/17/21 17:26 Antibiotics) escitalopram [From Lexapro] AdvReac Intermediate Clenching Verified 01/17/21 17:26 jaw and headaches Family History Mother Breast cancer Uterine cancer Father Hypertension Prostate cancer Surgical History History of (11/2019) History of colon resection History of tubal ligation History of wisdom tooth extraction Social History Smoking Status: Never smoker ROS ROS ED Constitutional Constitutional ED: Reports systems reviewed and no addt'l complaints, except as documented; Denies body ache(s), change in weight or chills Eyes Eyes: Denies acute decrease in peripheral vision, change in vision, double vision or loss of vision ENT ENT ED: Reports none; Denies ear pain, lip swelling, loss taste/smell, neck pain, otalgia or sore throat Cardiovascular Cardiovascular: Reports none and racing heartbeat; Denies abdominal pain, chest pain with activity, leg edema, lightheadedness, palpitations, rapid heart rate or syncope Respiratory/Chest Respiratory/Chest: Reports none; Denies change in mental status, dry cough, dyspnea, hemoptysis, shortness of breath at rest or shortness of breath with exertion Gastrointestinal Gastrointestinal: Reports none; Denies abdominal pain, change in stool character, diarrhea, hematemesis, hematochezia, melena, rectal bleeding or vomiting Genitourinary Genitourinary ED: Reports none; Denies abdominal discomfort, anuria, dysuria, genital pain or polyuria Musculoskeletal Musculoskeletal: Reports none and other Details: Left calf pain redness and swelling ; Denies arthralgias, back pain, difficulty walking, extremity pain, muscle weakness or myalgias Integumentary Reports none; Denies abscess or rash Neurologic Neurologic: Reports none; Denies abnormal gait, confusion, focal weakness, frequent falls, headache(s), loss of vision, numbness, paresthesias, radicular pain, vertigo or weakness Psychiatric Psychiatric: Reports systems reviewed and no addt'l complaints, except as documented and none; Denies behavioral changes, confusion, difficulty concentrating, hallucinations, suicidal ideation, tactile hallucinations or visual hallucinations Endocrine Endocrinology: Denies none, cold intolerance, excessive sweating, fatigue or heat intolerance Hematologic/Lymphatic Hematologic/Lymphatic: Reports none; Denies anemia, easy bleeding or easy bruising Allergic/Immunologic Allergic/Immunologic ED: Denies as per HPI, none, lip swelling, mouth swelling, throat swelling, tongue swelling or hives EXAM Physical Exam Const Vital Signs: 01/17/21 17:26 01/17/21 18:11 01/17/21 19:21 Temperature 96.5 F L Temperature Source Temporal Pulse Rate 125 H 98 90 Respiratory Rate 18 17 16 Blood Pressure 186/113 H 150/101 H 138/95 H Blood Pressure Mean 137 117 109 Pulse Ox 100 Oxygen Delivery Method Room Air Positive well nourished and well developed General Appearance ED: well developed and NAD HEENT Reports TM's clear and moist mucous membranes normocephalic and atraumatic; Negative for trauma or tenderness Tympanic Membrane ED: Yes TM's clear Eyes PERRL and EOMs intact bilaterally General Eye ED: Negative for pale conjunctiva or scleral icterus Neck no lymphadenopathy, supple and no JVD General: Negative for tenderness Chest Wall inspection of chest normal and palpation of chest normal Chest: Negative for tenderness Resp normal respiratory effort and clear to auscultation bilaterally Effort and Inspection: Negative for respiratory distress or pain with movement Auscultation: Negative for rhonchi, wheezes or diminished lung sounds Cardio regular rhythm, S1 normal heart sound, S2 normal heart sound and no murmurs Rate: tachycardic Peripheral Pulses: pulses 2+ throughout GI normal to inspection, nondistended, normoactive bowel sounds, soft to palpation, non-tender, non-distended and no masses Back/Spine no CVA tenderness and no thoracic nor lumbar tenderness Extremity normal to inspection Extremity Narrative: Patient does have some faint lacy-like erythema to the posterior left calf with some diffuse tenderness over the calf and some increased size of the left calf compared to the right. Neurovascularly intact distally. Positive Homans' sign. General Extremety ED: Negative for edema General Extremity: Negative for edema Neuro oriented x3, CN's II-XII intact bilaterally, no sensory deficits noted and gait normal Sensorium / Orientation: awake, alert, oriented to person, oriented to place and oriented to time Motor Exam: strength 5/5 throughout and strength abnormal Psych mental status grossly normal Skin no rashes or lesions noted and no wounds MDM MDM MDM Narrative Medical decision making narrative: Lab work-up unremarkable in department. Patient had a CT of the chest that was negative for PE. Ultrasound is not available to rule out DVT. I will give her a dose of Eliquis 10 mg p.o. and have her come back tomorrow morning for venous Doppler of her left lower extremity. Patient advised to return if chest pain, shortness of breath, or condition should worsen anyway. Lab Data Attestation: I reviewed the patient's lab results. Labs: Laboratory Results - last 24 hr 01/17/21 01/17/21 01/17/21 18:00 18:00 18:00 WBC 9.8 RBC 4.40 Hgb 14.1 Hct 42.5 MCV 96.6 MCH 32.0 MCHC 33.2 RDW Std Deviation 44.8 H RDW Coeff of Rufino 12.4 Plt Count 224 MPV 9.2 Immature Gran % (Auto) 0.200 Neut % (Auto) 63.2 Lymph % (Auto) 28.3 [place] % (Auto) 6.6 Eos % (Auto) 1.1 Baso % (Auto) 0.6 Absolute Neuts (auto) 6.2 Absolute Lymphs (auto) 2.78 Nucleated RBC % 0 D-Dimer Quant (PE/DVT) 0.56 H* Sodium 140 Potassium 3.7 Chloride 107 Carbon Dioxide 28.0 Anion Gap 5 BUN 6 L Creatinine 0.78 Estim Creat Clear Calc 75.34 Est GFR (MDRD) Af Amer 100 Est GFR (MDRD) Non-Af 83 BUN/Creatinine Ratio 7.6 L Glucose 101 Calcium 8.7 Radiography Diagnostic Testing: Clinical Impression(s) from Imaging Studies Chest CTA 01/17/21 19:30 IMPRESSION: Negative CTA chest. Electronically Signed: Morteza Ocampo MD ([place]) at 20:19 EST , Service support , EKG Initial EKG: Attestation: I personally reviewed and interpreted this EKG as follows: Comments: Sinus rhythm with a ventricular rate of 104 bpm with old septal infarct noted. Discharge Plan Triage Chief Complaint: Lower Extremity Injury ED Provider: Lawrence Tom Dx/Rx/DC Orders Clinical Impression: Leg edema Instructions: ED Peripheral Edema, Unilateral Prescriptions: No Action albuterol sulfate [ProAir HFA] 108 inhaler 1 - 2 puff inhalation Q4H PRN PRN (Reason: Sob &/Or Wheezing) RF: 0 venlafaxine 50 mg Tablet 50 mg PO DAILY RF: 0 Primary Care Provider: Sree Sanchez Referrals: Sree Sanchez MD [Primary Care Provider] - 3-5 Days Disposition Disposition: Home, Self Care
[2021-01-17 18:10] LABS: Absolute Lymphocyte Count 2.78 X10^3/uL (0.83-4.51); Absolute Neutrophil Count 6.2 X10^3/uL (2.0-7.7); Basophil# 0.06 X10^3/uL; Basophil% 0.6 % (0-1); Eosinophil# 0.11 X10^3/uL; Eosinophils% 1.1 % (0-5); Hematocrit 42.5 % (37-47); Hemoglobin 14.1 g/dL (12.0-15.0); Lymphocyte # 2.78 X10^3/ul (0.83-4.51); Lymphocyte % 28.3 % (19-41); Mean Corp Hgb Conc 33.2 g/dL (32-36); Mean Corpuscular Volume 96.6 fL (81-99); Mean Platelet Vol. 9.2 fl (6.2-12.0); Monocyte# 0.65 X10^3/uL; Monocyte% 6.6 % (0-10); NRBC Flagged by Analyzer 0 % (0-5); Neutrophil # 6.22 X10^3/uL (2.7-7.7); Neutrophil % 63.2 % (47-70); Platelet Count 224 K/mm3 (150-450); RBC Distribution Width CV 12.4 % (11.6-14.6); RBC Distribution Width SD 44.8 fl (35.1-43.9); White Blood Count 9.8 K/mm3 (4.4-11.0)
[2021-01-17 18:11] VITALS: BP 150/101; PULSE 98; RESP 17
[2021-01-17 18:22] LABS: D-Dimer Quantitative (DVT/PE) 0.56 FEU/ug/m (0.27-0.49)
[2021-01-17 18:23] LABS: Anion Gap 5 (5-15); BUN 6 mg/dL (7-18); BUN/Creat Ratio 7.6 RATIO (10-20); Calcium,Total 8.7 mg/dL (8.5-10.1); Chloride 107 mmol/L (98-107); Creatinine, Serum 0.78 mg/dL (0.55-1.02); EST Glomerular Filtration Rate 83 mL/min (>60); Est Glom Filt Rate - Afr Amer 100 mL/min (>60); Estimated Creatinine Clearance 75.34 ml/min; Glucose 101 mg/dL (74-106); Potassium 3.7 mmol/L (3.5-5.1); Sodium Level 140 mmol/L (136-145)
[2021-01-17 19:21] VITALS: BP 138/95; PULSE 90; RESP 16
--- NOTE | 2021-01-17 19:30 | CT_ITS ---
EXAM: CT ANGIOGRAPHY CHEST WITHOUT AND WITH INTRAVENOUS CONTRAST CLINICAL INDICATION: tachycardia, elevated d-dimer TECHNIQUE: Helically acquired angiography images were obtained of the chest without and with intravenous contrast. This CT exam was performed using one or more of the following dose reduction techniques: automated exposure control, adjustment of the mA and/or kV according to patient size, and/or use of iterative reconstruction technique. This report was created using [email or web address] report generation technology. MIP reconstructed images were created and reviewed. CONTRAST: IV 75mL [id number] COMPARISON: None. FINDINGS: PULMONARY ARTERIES: Unremarkable. Normal in caliber. No evidence of pulmonary embolism. AORTA: Unremarkable. Normal in caliber. No evidence of dissection. GREAT VESSELS OF AORTIC ARCH: Unremarkable. Normal in caliber. No evidence of dissection. LUNGS AND PLEURAL SPACES: Unremarkable. No mass. No consolidation or edema. No pleural effusion or thickening. No pneumothorax. HEART: Unremarkable. Heart size is normal. No pericardial effusion. No signs of right heart strain, ratio of right ventricle to left ventricle measures less than 1. MEDIASTINUM: Unremarkable. No mediastinal or hilar adenopathy. Esophagus is unremarkable. No hiatal hernia. THYROID: Unremarkable. No thyroid lesions. BONES/JOINTS: Unremarkable. No suspicious lytic or blastic abnormality. CT/CTA Chest W/WO Contrast IMPRESSION: Negative CTA chest. Electronically Signed: Morteza Ocampo MD ([place]) at 20:19 EST , Service support ,
[2021-01-17] MEDS: APIXABAN 5 MG TABLET 10 MG PO (21:11)
[2021-01-17 21:14] VITALS: BP 154/98; PULSE 94; RESP 21; O2SAT 95
== END 2021-01-17 21:16 | disposition home or self-care (01) ==
PROVIDERS: Emergency Provider Emergency Medicine; PCP Family Medicine
DX: R60.0 Localized edema (principal); F41.1 Generalized anxiety disorder; J45.909 Unspecified asthma, uncomplicated; Z79.899 Other long term (current) drug therapy; R41.840 Attention and concentration deficit; K90.0 Celiac disease; K57.30 Diverticulosis of large intestine without perforation or abscess without bleeding; K57.10 Diverticulosis of small intestine without perforation or abscess without bleeding; G60.8 Other hereditary and idiopathic neuropathies
CPT/HCPCS: 71275; 80048; 85025; 85379; 93005; 99284; Q9967

== ENCOUNTER → 2021-01-18 11:33 | Outpatient (CLI) | payer OTHER, SELFPAY ==
--- NOTE | 2021-01-18 11:42 | VDLE_ITS ---
Reason For Study: PAIN RIGHT LEFT CFV is compressible, spontaneous, phasic, GSV is normal. competent and demonstrates normal CFV is compressible, spontaneous, phasic, augmentation. competent, and demonstrates normal augmentation. FV is compressible, spontaneous, phasic, competent and demonstrates normal augmentation. POP V is compressible, spontaneous, phasic, competent and demonstrates normal augmentation. T/P Trunk is compressible. PTV is compressible. LT PerV is compressible. VL/Venous Duplex US, Unilateral Interpretation Summary There is no evidence of left lower extremity deep vein thrombosis. Left great s aphenous vein appears patent and compressible segmentally. Normal flow patterns right common femoral vein Ordering Physician: Lawernce Tom Referring Physician: RENETTA BHAGAT Performed By: Blossom Rueda, RDCS, RVT
== END ==
PROVIDERS: PCP Family Medicine; Visit Provider Emergency Medicine
DX: M79.605 Pain in left leg (principal)
CPT/HCPCS: 93971

== ENCOUNTER → 2022-03-23 | Outpatient (CLI) | payer OTHER, SELFPAY ==
--- NOTE | 2022-03-23 07:52 | RAD_ITS ---
STUDY: X-RAY - ESOPHAGUS (BARIUM SWALLOW) WITH FLUOROSCOPY REASON FOR EXAM: Female, 51 years old. DYSPHAGIA TECHNIQUE: 24 view(s) of the esophagus were obtained following swallowing of barium. FLUOROSCOPY TIME (if supplied): (30 seconds) minutes/seconds COMPARISON: None. FINDINGS: There is no demonstrated esophageal foreign body. There is no demonstrated stricture or mucosal abnormality. Normal gastroesophageal junction, without a demonstrated hiatal hernia. The patient ingested a 12 mm tablet of barium without any difficulty. Normal visualized aortic arch and descending thoracic aorta. Normal visualized pulmonary parenchyma. Normal visualized osseous structures of the thorax. RAD/Esophagus Dual Contrast IMPRESSION: Normal plain film x-ray examination (barium swallow) of the esophagus. Electronically Signed: Morgan Lamb MD at 12:39 EST ,
== END | disposition home or self-care (01) ==
PROVIDERS: PCP Family Medicine; Visit Provider Internal Medicine Gastroenterology
DX: R13.10 Dysphagia, unspecified (principal); K21.9 Gastro-esophageal reflux disease without esophagitis
CPT/HCPCS: 74221